=== PATIENT | male | born 1955 | race Caucasian/White ===

== ENCOUNTER → 2018-09-18 | Outpatient (REF) ==
--- NOTE | 2018-09-19 02:55 | REP ---
Clinical: Pain and disability. Technique: AP, lateral, bilateral oblique views of the right knee. Findings: Early arthritic degenerative changes include subchondral sclerosis along the tibial plateau with marginal osteophyte formation and medial joint space narrowing. Lateral view demonstrates spurring along the inferior margin of the patella. No acute fracture or dislocation. Impression: Early arthritic tricompartmental degenerative changes. Electronically Signed by Madi Méndez MD 09/19/2018 02:47 A
--- NOTE | 2018-09-19 02:59 | REP ---
Clinical: Back pain. Technique: AP, lateral, coned-down views of the lumbosacral spine. Findings: Alignment is maintained. Straightening of normal lordosis is nonspecific. Early advanced multilevel degenerative changes include endplate sclerosis, osteophytosis, disc space narrowing and hypertrophic facet changes. Findings most pronounced at L5-L1, L3-4. Impression: Early advanced multilevel spondylosis. Electronically Signed by Madi Méndez MD 09/19/2018 02:52 A
== END ==
LOC: M SMT 12:22
PROVIDERS: ATTEND Internal Medicine
DX: Z00.00 Encounter for general adult medical examination without abnormal findings (principal)